=== PATIENT | female | born 1950 | race Caucasian/White ===

== ENCOUNTER 2016-10-14 21:35 | Emergency (ER) | payer OTHER, MEDICAID ==
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
--- NOTE | 2016-10-15 10:33 | Diagnostic Imaging Report ---
Left knee (3 views) HISTORY: Pain, trauma No acute bony abnormalities. No fractures. Spur formation seen about the tibial spines. IMPRESSION: 1. No acute abnormalities 2. Mild degenerative changes
--- NOTE | 2016-10-15 10:34 | Diagnostic Imaging Report ---
Right knee (3 views) HISTORY: Pain No acute bony abnormalities. No fractures. Joint spaces appear normal. Vascular calcification noted. IMPRESSION: 1. No acute bony abnormalities 2. Atherosclerotic vascular changes
== END 2016-10-15 01:35 ==
LOC: ER 21:35
DX: S80.02XA Contusion of left knee, initial encounter (principal); S80.01XA Contusion of right knee, initial encounter; J44.9 Chronic obstructive pulmonary disease, unspecified; J45.909 Unspecified asthma, uncomplicated; F17.200 Nicotine dependence, unspecified, uncomplicated; W19.XXXA Unspecified fall, initial encounter; Y93.89 Activity, other specified; Y92.89 Other specified places as the place of occurrence of the external cause; Y99.8 Other external cause status
CPT/HCPCS: 99284; 96372; 73564 ×2; 90715; J1885; 73562-TC-LT; 73562-TC-RT; Z7502

== ENCOUNTER 2018-12-17 17:52 | Emergency (ER) | payer OTHER, MEDICAID ==
--- NOTE | 2018-12-17 18:20 | ED Physician Chart ---
ED Chief Complaint/HPI - Patient Information Date Seen:: 12/17/18 Time Seen:: 17:50 Chief Complaint:: L lower leg pain for about 6 weeks. History of Present Illness:: Brought in by ambulance from nursing facility because of pain in left lower extremity for about 6 weeks. Pt denies any recent injury. Pain can be aggravated with wt bearing activities. No weakness or numbness. Allergies:: Allergies Allergy/AdvReac Type Severity Reaction Status Date / Time No Known Allergies Allergy Verified 10/14/16 22:07 Vitals:: Vital Signs - 8 hr 12/17/18 18:00 Temp 96.5 F HR 93 RR 16 BP 110/46 O2 Sat % 90 Historian:: Patient, Medical Records (from nursing facility.) Family MD/PCP:: Dr. Garcia LMP:: Postmenopausal. 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 Pt has been encouraged to enroll in a smoking cessation program. Pt acknowledges understanding. 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 Surgical History: other (h/o R neck vascular surgery (? R endarterectomy)) Psychiatricy History: None Medication: Reviewed Family Medical History - Family Member Mother History Unknown: Yes ED Physical Exam - Physical Examination General/Constitutional: Awake, Well-developed, well-nourished (female), Alert, No distress, Non-toxic appearing Other Gen/Cons comments:: Breathes comfortably, speaks clearly, and interacts appropriately. Head: Atraumatic Eyes: Lids, conjuctiva normal, PERRL, EOMI Skin: Nl inspection, Well hydrated, No lymphadenopathy ENMT: External ears, nose nl, Nasal exam nl, Oropharynx nl Neck: Nontender, Full ROM w/o pain, No JVD, No nuchal rigidity, No mass Respiratory: Nl effort/Exclusion, Clear to Auscultation, No Wheeze/Rhonchi/Rales Cardio Vascular: RRR, No murmur, gallop, rubs GI: No tenderness/rebounding/guarding, No organomegaly, Normal BS's, Nondistended, No mass/bruits Other GI comments:: Abdomen is soft. Other Extremities comments:: LLE: tenderness at anterior aspect of L hip. Good ROM. No gross deformity, erythema, ecchymosis, or open wound. No leg length discrepancy compared with RLE. No detectable motor/sensory/vascular deficit. Good distal pulse. Neuro/Psych: Alert/oriented (oriented x 3), No focal deficits Misc: Normal back, No paraspinal tenderness ED Labs/Radiology/EKG Results - Lab Results Results: Laboratory Results - last 24 hr 12/17/18 12/17/18 12/17/18 18:42 18:42 18:42 WBC 6.2 RBC 3.62 L Hgb 11.8 L Hct 34.8 L MCV 96.2 MCH 32.7 H MCHC Differential 34.0 RDW 14.3 Plt Count 323 MPV 6.8 Neutrophils % 72.6 Lymphocytes % 20.3 Monocytes % 5.3 Eosinophils % 1.3 Basophils % 0.5 PT 9.6 INR 0.92 PTT (Actin FS) 30.0 Sodium 137 Potassium 4.5 Chloride 101 Carbon Dioxide 28.9 Anion Gap 11.6 BUN 20 Creatinine 0.8 Est GFR ( Amer) > 60.0 Est GFR (Non-Af Amer) > 60.0 BUN/Creatinine Ratio 25.0 Glucose 91 Calcium 9.3 Total Bilirubin 0.2 L AST 19 ALT 15 Alkaline Phosphatase 138 H Total Protein 6.8 Albumin 4.3 Globulin 2.5 Albumin/Globulin Ratio 1.7 - Radiology Results Results: Left hip X-ray (2v): Based on my interpretation, degenerative changes noticed. No acute fx or subluxation. Official report is pending. ED Septic Shock - . Is Septic Shock (SBP<90, OR Lactate>4 mmol\L) present?: No - <6hrs of presentation: Vital Signs: Vital Signs - 8 hr 12/17/18 18:00 Temp 96.5 F HR 93 RR 16 BP 110/46 O2 Sat % 90 ED Reassessment (Disposition) - Reassessment Reassessment:: 2007 Pt feels better with decrease in left hip pain. Pt does not need more pain control. L hip X-ray and available lab findings have been reviewed with pt. Management plan has been discussed. 2049 Case was discussed with Dr. Garcia with pt's pertinent H & P, lab, and radiological findings reviewed. He requested that pt is to be transferred back to her nursing facility. He will follow pt as outpatient. Reassessment Condition:: Improved - Diagnosis Diagnosis:: L hip pain related to DJD. Mild anemia. - Aftercare/Follow up Instructions Aftercare/Follow-Up Instructions:: Refer to Discharge Instructions Notes:: Bed rest for today. Continue current pain control. Strain/sprain care instructions given. Avoid weight bearing activities on L hip. Use crutches. F/U with PCP Dr. Garcia in one day for recheck with repeat lab studies:CBC, CMP. Return to ER immediately if condition worsens or if any further questions/ problems. Medication Prescribed:: None - Patient Disposition Discharge/Transfer:: Pt is to be transported via ambulance. Time:: 21:25 Condition at Disposition:: Stable, Improved
[2018-12-17 19:02] LABS: INR 0.92 (0.5-1.4)
[2018-12-17 19:03] LABS: ALB/GLOB RATIO 1.7 (1.0-1.8); ALBUMIN 4.3 gm/dL (3.7-5.3); ALKALINE PHOSPHATASE 138 U/L (34-104); ANION GAP 11.6 (7.0-16.0); BILIRUBIN,TOTAL 0.2 mg/dL (0.3-1.0); BUN - UREA NITROGEN 20 mg/dL (7-25); CALCIUM SERUM 9.3 mg/dL (8.6-10.3); CARBON DIOXIDE 28.9 mEq/L (21.0-31.0); CHLORIDE 101 mEq/L (98-107); CREATININE - SERUM 0.8 mg/dL (0.6-1.2); GFR AFRICAN-AMERICAN > 60.0 ml/min (>90); GFR NON AFRICAN-AMERICAN > 60.0 ml/min; GLUCOSE 91 mg/dL (70-105); POTASSIUM SERUM 4.5 mEq/L (3.5-5.1); SGOT 19 U/L (13-39); SGPT/ALT 15 U/L (7-52); SODIUM SERUM 137 mEq/L (136-145); TOTAL PROTEIN,SERUM 6.8 gm/dL (6.0-8.3)
[2018-12-17 19:14] LABS: RED BLOOD COUNT 3.62 Mil/cmm (3.80-5.20); WHITE BLOOD COUNT 6.2 Th/cmm (4.8-10.8)
[2018-12-17 19:15] LABS: % EOSINOPHILS 1.3 % (0.0-5.0); % LYMPHOCYTES 20.3 % (20.0-50.0); % MONOCYTES 5.3 % (2.0-10.0); % NEUTROPHILS 72.6 % (40.0-80.0); HEMATOCRIT 34.8 % (41.0-60); HEMOGLOBIN 11.8 gm/dL (12-16); MEAN CELL VOLUME 96.2 fl (81-100); MEAN CORPUSCULAR HEMOGLOBIN 32.7 pg (27.0-31.0); PLATELET COUNT 323 Th/cmm (150-400); RED CELL DISTRIBUTION WIDTH 14.3 % (11.5-20.0)
[2018-12-17 19:16] LABS: % BASOPHILS 0.5 % (0.0-2.0)
--- NOTE | 2018-12-18 10:13 | Diagnostic Imaging Report ---
Left hip (2 views) HISTORY: Pain No acute abnormalities. No fractures. Narrowing about the joint space. Mild sclerotic change along with small cyst formation noted in the subarticular region of the femoral head. Extensive vascular calcification is noted. IMPRESSION: 1. No acute abnormalities 2. Degenerative changes 3. Atherosclerotic vascular change
== END 2018-12-17 21:38 ==
LOC: ER 17:52
DX: M25.552 Pain in left hip (principal); D64.9 Anemia, unspecified; J44.9 Chronic obstructive pulmonary disease, unspecified; F17.200 Nicotine dependence, unspecified, uncomplicated
CPT/HCPCS: 99284; 96374; 73502; 36415; 85025; 85610; 80053; J1885; 73501